=== PATIENT | male | born 1995 | race Caucasian/White ===

== ENCOUNTER 2017-11-11 12:30 | Emergency (ER) | payer SELFPAY ==
[2017-11-11 13:15] VITALS: BP 155/70; PULSE 74; RESP 16; TEMP 97.6; O2SAT 99
[2017-11-11 14:02] LABS: AUTOMATED NEUTROPHIL # 5.8 TH/MM3 (1.8-7.7); BASOPHIL # 0.1 TH/MM3 (0-0.2); BASOPHIL % 0.7 % (0.0-2.0); EOSINOPHIL # 0.1 TH/MM3 (0-0.4); EOSINOPHIL % 1.2 % (0.0-4.0); HEMATOCRIT 43.2 % (39.0-51.0); HEMOGLOBIN 14.8 GM/DL (13.0-17.0); LYMPH % 24.4 % (9.0-44.0); LYMPHOCYTE # 2.1 TH/MM3 (1.0-4.8); MEAN CORPUSCULAR HEMOGLOBIN 29.1 PG (27.0-34.0); MEAN CORPUSCULAR HGB CONC 34.3 % (32.0-36.0); MEAN PLATELET VOLUME 8.4 FL (7.0-11.0); MONO % 5.9 % (0.0-8.0); MONOCYTE # 0.5 TH/MM3 (0-0.9); NEUT % 67.8 % (16.0-70.0); PLATELET COUNT 368 TH/MM3 (150-450); RED BLOOD COUNT 5.09 MIL/MM3 (4.50-5.90); RED CELL DISTRIBUTION WIDTH 12.4 % (11.6-17.2); WHITE BLOOD COUNT 8.5 TH/MM3 (4.0-11.0)
[2017-11-11 14:17] LABS: BICARBONATE 29.9 MEQ/L (21.0-32.0); CREATININE 0.81 MG/DL (0.60-1.30)
--- NOTE | 2017-11-11 15:22 | PD ---
HPI Chief Complaint: Lump, Cyst, Hernia Time Seen by Provider: 15:19 Travel History International Travel<30 days: No Contact w/Intl Traveler<30days: No Traveled to known affect area: No History of Present Illness HPI 22-year-old male patient recently diagnosed with a left neck mass that has been expanding, presents to the ER today because he feels discomfort in his left neck , feels like he has discomfort with swallowing although he is able to eat and drink. He denies any trouble breathing. He is here because he does not have further specialist follow-up until mid November. Modifying Factors: None Associated Signs & Symptoms: Enlarging left neck mass, pain with swallowing Risk Factors: None PFSH Past Medical History Medical History: Denies Significant Hx Past Surgical History Surgical History: No Previous Surgery Social History Alcohol Use: Yes (occassionally ) Tobacco Use: No Substance Use: No Allergies-Medications (Allergen,Severity, Reaction): Coded Allergies: No Known Allergies (Unverified , 11/11/17) Reported Meds & Prescriptions Reported Meds & Active Scripts Active No Active Prescriptions or Reported Medications Review of Systems Except as stated in HPI: all other systems reviewed are Neg Physical Exam Narrative GENERAL: Well-developed young male patient currently in mild distress. Awake and oriented 3. SKIN: Focused skin assessment warm/dry. HEAD: Atraumatic. Normocephalic. EYES: Pupils equal and round. No scleral icterus. No injection or drainage. ENT: No nasal bleeding or discharge. Mucous membranes pink and moist. NECK: Trachea midline. No JVD. There is a large left neck mass overlying the sternocleidomastoid area extending from the lobe with the ear down close to the clavicle. Is mildly tender to palpation. I do not see any surrounding erythema. CARDIOVASCULAR: Regular rate and rhythm. No murmur appreciated. RESPIRATORY: No accessory muscle use. Clear to auscultation. Breath sounds equal bilaterally. GASTROINTESTINAL: Abdomen soft, non-tender, nondistended. Hepatic and splenic margins not palpable. MUSCULOSKELETAL: No obvious deformities. No clubbing. No cyanosis. No edema. NEUROLOGICAL: Awake and alert. No obvious cranial nerve deficits. Motor grossly within normal limits. Normal speech. PSYCHIATRIC: Appropriate mood and affect; insight and judgment normal. Data Data Last Documented VS Vital Signs Date Time Temp Pulse Resp B/P (MAP) Pulse Ox O2 Delivery O2 Flow Rate FiO2 11/11/17 13:15 97.6 74 16 155/70 (98) 99 Orders Orders Complete Blood Count With Diff (11/11/17 13:20) Basic Metabolic Panel (Bmp) (11/11/17 13:20) Ct Soft Tiss Neck W Iv Cont (11/11/17 ) Iohexol 350 Inj (Omnipaque 350 Inj) (11/11/17 16:25) Ed Discharge Order (11/11/17 17:24) Labs Laboratory Tests Test 11/11/17 13:36 White Blood Count 8.5 TH/MM3 Red Blood Count 5.09 MIL/MM3 Hemoglobin 14.8 GM/DL Hematocrit 43.2 % Mean Corpuscular Volume 85.0 FL Mean Corpuscular Hemoglobin 29.1 PG Mean Corpuscular Hemoglobin Concent 34.3 % Red Cell Distribution Width 12.4 % Platelet Count 368 TH/MM3 Mean Platelet Volume 8.4 FL Neutrophils (%) (Auto) 67.8 % Lymphocytes (%) (Auto) 24.4 % Monocytes (%) (Auto) 5.9 % Eosinophils (%) (Auto) 1.2 % Basophils (%) (Auto) 0.7 % Neutrophils # (Auto) 5.8 TH/MM3 Lymphocytes # (Auto) 2.1 TH/MM3 Monocytes # (Auto) 0.5 TH/MM3 Eosinophils # (Auto) 0.1 TH/MM3 Basophils # (Auto) 0.1 TH/MM3 CBC Comment DIFF FINAL Differential Comment Blood Urea Nitrogen 10 MG/DL Creatinine 0.81 MG/DL Random Glucose 120 MG/DL Calcium Level 9.0 MG/DL Sodium Level 138 MEQ/L Potassium Level 3.8 MEQ/L Chloride Level 102 MEQ/L Carbon Dioxide Level 29.9 MEQ/L Anion Gap 6 MEQ/L Estimat Glomerular Filtration Rate 119 ML/MIN MDM Medical Decision Making Medical Screen Exam Complete: Yes Emergency Medical Condition: Yes Medical Record Reviewed: Yes Interpretation(s) Laboratory Tests Test 11/11/17 13:36 Random Glucose 120 MG/DL (74-106) Last [address] 11/11/17 0000 Signed Impressions: Service Date/Time: Saturday, November 11, 2017 16:22 - CONCLUSION: 5.6 cm cystic mass left side of the neck 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 Lenny Torrez MD FACR Differential Diagnosis Left neck mass: Rule out airway compromise versus abscess versus cystic lesion Narrative Course CAT scan did not show any signs of airway impingement. Lab work did not show any leukocytosis and he is afebrile. Case was discussed with ENT Dr. Al who states that the patient will need to be evaluated by a head and neck surgeon because of the size of the lesion. He states that it is reasonable to follow-up in mid November as appointed. At this point, patient can take Tylenol and ibuprofen for discomfort. He should return for any worsening in pain, difficulty swallowing, fevers, difficulty breathing, or new symptoms as needed. The plan has been discussed with him and he states understanding. Diagnosis Primary Impression: Branchial cleft cyst Scripts No Active Prescriptions or Reported Meds Disposition: 01 DISCHARGE HOME Condition: Stable Maude Nielsen MD Nov 11, 2017 15:22
[2017-11-11] MEDS ORDERED: IOHEXOL 350 MG/ML 10 ML VIAL (for RAD DIAG) IVCONTRAST ONE (16:25)
--- NOTE | 2017-11-11 16:49 | RADRPT ---
EXAM DATE/TIME: 11/11/2017 16:22 [facility] COMPARISON: No previous studies available for comparison. INDICATIONS : Left neck swelling. Dysphagia. IV CONTRAST: 75 cc Omnipaque 350 (iohexol) IV RADIATION DOSE: 15.49 CTDIvol (mGy) MEDICAL HISTORY : None SURGICAL HISTORY : None. ENCOUNTER: Initial ACUITY: 1 yr PAIN SCALE: 5/10 LOCATION: neck TECHNIQUE: Volumetric scanning of the neck was performed. Using automated exposure control and adjustment of th e mA and/or kV according to patient size, radiation dose was kept as low as reasonably achievable to obtain optimal diagnostic quality images. DICOM format image data is available electronically for r eview and comparison. FINDINGS: The nasopharynx and oropharynx unremarkable. There is enlarged 5.6 cm cystic mass in the left side o f the neck is probably branchial cleft remnant cyst. This has an unusual appearance or abscess. Thi s is not associated with the parotid or submandibular gland This is seen between sternocleidomastoid and carotid. The right neck is unremarkable. Thyroid appears normal. There is no adenopathy. Lung apex is clear. The bony skeleton is unremarka ble. 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 Lenny Torrez MD FACR on November 11, 2017 at 16:42 Board Certified Radiologist. This report was verified electronically.
== END 2017-11-11 17:47 | disposition home or self-care (01) ==
LOC: NED 12:30 → NEPE 17:47
DX: Q18.0 Sinus, fistula and cyst of branchial cleft (principal)
CPT/HCPCS: 70491; 80048; 85025; 99284; Q9967